=== PATIENT | male | born 1980 | race Caucasian/White ===

== ENCOUNTER 2024-06-30 22:18 | Emergency (ER) | payer BC, SELFPAY ==
[2024-06-30 22:19] VITALS: BMI 29.8
--- NOTE | 2024-06-30 22:27 | XR_ITS ---
Examination: Knee, right , 3 views Technique: Knee AP, lateral, oblique 3 views Date and time of exam: June 30 2024 0519 hrs. Indications: Swelling and pain right knee today. Findings: No fracture or dislocation Mild narrowing medial joint space Small knee effusion Impression: Small knee effusion
[2024-06-30 22:35] VITALS: BP 153/95; PULSE 100; RESP 18; TEMP 37.3; O2SAT 99
--- NOTE | 2024-06-30 22:45 | EDNOTE_ITS ---
Lower Extremity Injury RME/HPI General Chief Complaint: Extremity Injury, Lower Stated Complaint: I THINK I TORE SOMETHING IN MY RIGHT KNEE Time Seen by Provider: 06/30/24 22:43 Arrival date/time: 06/30/24 22:18 43M with no significant PMH presents to ED with R knee pain and swelling. Patient denies fall/trauma, but patient walks a lot for work. Patient states there was a small bump in front of knee for a long time and today it got a lot more swollen. Patient denies SOB. Patient has not had R knee surgery before. Limitations: no limitations Related Data Home Medications ?Medication ?Instructions ?Recorded ?Confirmed No Known Home Medications 07/15/2006/19 Allergies Allergy/AdvReac Type Severity Reaction Status Date / Time HAZELNUT Allergy THROAT Uncoded 06/30/24 22:19 SWELLING Review of Systems Review of Systems Systems Reviewed: All systems reviewed, normal except as documented Constitutional Constitutional: Reports system reviewed and no additional complaints, except as documented, Denies fever(s) and Denies headache(s) ENT Ears, Nose, Mouth, and Throat: Denies disequilibrium and Denies headache(s) Cardiovascular Cardiovascular: Reports system reviewed and no additional complaints, except as documented, Denies chest pain and Denies dyspnea Respiratory Respiratory: Reports system reviewed and no additional complaints, except as documented, Denies cough and Denies dyspnea Gastrointestinal Gastrointestinal: Reports system reviewed and no additional complaints, except as documented, Denies abdominal pain, Denies nausea and Denies vomiting Musculoskeletal Musculoskeletal: Reports as per HPI, Reports arthralgias and Reports joint swelling Neurologic Neurologic: Reports system reviewed and no additional complaints, except as documented, Denies confusion, Denies disequilibrium and Denies headache(s) Psychiatric Psychiatric: Denies confusion Past Medical History Past Medical History CARDIAC: Negative Congestive Heart Failure RESPIRATORY: Negative Chronic Obstructive Pulmonary Disease (COPD) GENITOURINARY: Negative Renal Disease ENDOCRINE: Negative Diabetes Mellitus Type 1 or Diabetes Mellitus Type 2 Social History SMOKING STATUS: Former smoker ED Exam General Limitations: Present no limitations General appearance: Present alert and in no apparent distress Head Head exam: Present atraumatic Eye Eye exam: Present normal appearance, PERRL and EOMI ENT ENT exam: Present normal exam, normal oropharynx and mucous membranes moist Neck Neck exam: Present normal inspection, full ROM and trachea midline Chest Chest inspection: Present normal inspection and symmetric chest wall rise Respiratory Respiratory exam: Present normal lung sounds bilaterally Cardiovascular Cardiovascular exam: Present regular rate, normal rhythm and normal heart sounds Abdominal Exam Abdominal exam: Present soft and normal bowel sounds Extremities Exam Extremities exam: Present full ROM Expanded Lower Extremity Exam Knee exam: Present full ROM, tenderness and swelling (Lump below R knee cap) Back Exam Back exam: Present normal inspection and full ROM Neurological Exam Neurological exam: Present alert, oriented X3 and CN II-XII intact Psychiatric Psychiatric exam: Present normal affect and normal mood Skin Skin exam: Present warm, dry, intact and normal color Course Quality Measures none Orders Category Date Time Status Crutches .NOW Care 06/30/24 23:25 Completed lo wrap [Splint / Immobilizer] STAT Care 06/30/24 23:25 Completed XR knee RT 3V Stat Exams 06/30/24 22:27 Completed Vital Signs Vital signs: Vital Signs Temperature 99.2 F 06/30/24 22:35 Pulse Rate 100 06/30/24 22:35 Respiratory Rate 18 06/30/24 22:35 Blood Pressure 153/95 H 06/30/24 22:35 Pulse Oximetry (%) 99 06/30/24 22:35 Oxygen Delivery Method Room Air 06/30/24 22:35 O2 at 99% on RA and WNLs Extremity Injury, Lower MDM Narrative MDM Narrative:: 43M with no significant PMH presents to ED with R knee pain and swelling. Patient denies fall/trauma, but patient walks a lot for work. Patient states there was a small bump in front of knee for a long time and today it got a lot more swollen. Patient denies SOB. Patient has not had R knee surgery before. Physical exam reveals some R knee tenderness with tender lump below R knee cap. No redness. ROM mostly intact. Gait normal. Patient is afebrile, calm, and alert. XR no fx; small effusion. Likely bursitis. Given LO, crutches, and director of counseling. Patient data External records reviewed:: [facility] previous records Clinical information provided by:: patient Social determinants that could affect healthcare access:: none Patient has the following chronic illnesses:: none How is presenting disease/condition affected by chronic disease/condition?: no chronic disease Evaluation data The following diagnostics were reviewed and interpreted by me:: radiology exam(s) Lab and/or radiology exams considered but not ordered:: ordered Interpretation Summary: above Medications / Prescriptions Medications or Prescriptions considered but not ordered:: not ordered Medication administrations:: n/a Consultations Consultation(s) initiated? (list below): No Diagnosis Extremity Injury, Lower Differential Diagnosis: ankle sprain and strain, acute internal derangement of knee, fracture of femur, fracture of hip, puncture wound of foot, fracture of toe, ankle fracture and other (DVT, bursitis) Most likely diagnosis given after review of the tests above:: bursitis Admission Indicated Admission indicated?: not indicated Admission Request Was there a request for admission?: No Disposition Plan Disposition Plan: Discharge Discharge Attestation Discharge Attestation: The patient and all family members were given an opportunity to ask questions and understood the discharge instructions. Discharge instructions specifically effects, indications for sooner follow up or return to the emergency department, and the expected course of current diagnosis. Patient condition: Stable Discharge Plan Plan Patient Disposition: HOME (Self Care) Disposition Comment: Stable Prescriptions/Referrals Prescriptions/Med Rec: No Action No Known Home Medications Referrals: No Primary/Family,Physician [Primary Care Provider] - In 1 week Problem List Clinical Impression: Bursitis Patient/Caregiver Discharge Instructions Education Materials: ED Bursitis Additional Instructions: Please follow-up with PCP within 24-48 hours and return immediately if symptoms worsen. If problem persists, recommend outpatient PT and/or MRI follow-up. In the meantime, rest, use ice/heat, and/or compression. Print Language: Belgian Stand Alone Forms: Patient Portal Info Letter LENA/CAROLEE Supervising Physician LENA/CAROLEE Supervising Physician: Dr. Hager
== END 2024-06-30 23:41 | disposition home or self-care (01) ==
PROVIDERS: Emergency Provider Emergency Medicine
DX: M71.561 Other bursitis, not elsewhere classified, right knee (principal)
CPT/HCPCS: 73562; 99283

== ENCOUNTER 2024-07-22 08:15 | Outpatient (AMB) | payer BC, SELFPAY ==
[2024-07-22 08:27] VITALS: BP 132/91; PULSE 70; RESP 19; TEMP 36.3; O2SAT 98; BMI 29.5
--- NOTE | 2024-07-22 08:27 | ORTHONT_ITS ---
Vital signs 07/22/24 08:27 Height 1.85 m Height Method Stated Weight 101.179 kg Weight Measurement Method Standing Scale BMI 29.5 BP 132/91 H Blood Pressure Source Automatic Cuff Blood Pressure Location Left Upper Arm Position Sitting Respiration 19 Pulse 70 Pulse Source Monitor Temp 97.4 F Temp Source Temporal Artery Scan Pulse Oximetry (%) 98 Oxygen Delivery Method Room Air Med/Allergies Allergies & Medications Allergies HAZELNUT Allergy (Uncoded 07/22/24 08:28) THROAT SWELLING Medication Reconciliation naproxen 500 mg tablet 500 mg PO BID #30 tabs 07/22/24 [Rx] Exam Exam Patient is in no acute distress and is cooperative with the examination today. Breathing is nonlabored. Patient has a normal mood and affect. The patient has a gait that is nonantalgic Bilateral extremities were evaluated and demonstrates sensation intact to light touch. Palpable pedal pulses are present. No significant edema is present. Bilateral hips were examined. The patient has no pain with log roll of the hips. Internal rotation to 30 degrees and external rotation to 30 degrees is painless. Negative FADIR. Left knee was examined today. The left knee is in reasonable alignment. Range of motion from 0-120 degrees. Knee is stable to varus and valgus as well as AP translation with <5mm. Patient has a negative McMurrays. There is no pain with patellofemoral compression and no crepitus noted. The knee is nontender to palpation. The right knee was also examined. The right knee is in neutral alignment. Range of motion from 0-120 degrees. Knee is stable to varus and valgus as well as AP translation with <5mm. Patient has a negative McMurrays. There is no pain with patellofemoral compression and no crepitus noted. The right knee tender to palpation of the tibial tubercle. There is resolving patella bursitis. There is actually very minimal fluid and is not even drainable at this time. The erythema is gone Assessment and Plan Problem List (1) Infrapatellar bursitis: Status: Acute Plan: Patient is a pleasant 43-year-old male with infrapatellar bursitis of the right knee with superimposed infection. He was treated with antibiotics and has largely resolved. We will continue to watch at this time. We recommend anti- inflammatories should he get persistent bursitis. I would not treat him with antibiotics this time because it looks like the infection has resolved Office Procedures GNS Level of Care Nursing/Assessment Patient Status: Initial/New Patient Nursing Assessment/Reassesment: Medication Reconciliation, Update PMH in EMR and Vital Signs Coordination of Care: Complex Care and Chronic Disease 1-5, Education Complex Pt/Fam, Consent,records obtained, informed consent, 1 Ins Authorization, Lab and Imaging orders, Results/Orders obtained and Staff clarify orders New Patient Charge New Patient Point Assignment: 1124 New Patient Point Charge: WELCOME WAGON HOSTESS Level 4 ([id number]) MA Intake Visit Data Collection New Patient or Established: New Patient (never been to [facility]) Reason for Visit:: RIGHT KNEE PREPATELLAR BURSITIS Seen by Clinical Staff ONLY (RN/MA): No PCP or OBGYN visit in last 3 months: Yes Hx Now: No Do You Feel Safe at Home: Yes Authorities Contacted: N/A Questionairres Past Medical History Past Medical History Have you ever been diagnosed with any of the following: Cardiology Problems Congestive Heart Failure: No Hypertension: Yes Respiratory Problems Chronic Obstructive Pulmonary Disease (COPD): No Smoking: No Smoking Exposure: No Genital/Urinary Problems Renal Disease: No Endocrine Problems Diabetes Mellitus Type 1: No Diabetes Mellitus Type 2: No Subjective Visit Visit for: new patient and knee (RIGHT) Immunization / Flu Flu Vaccine in the Last 12 Months: No Flu Vaccine Exclusion Criteria: Refused by Patient History of Present Illness Chief complaint: Right infrapatellar bursitis Sukhwinder is a pleasant 43-year-old male with right knee pain and infrapatellar bursitis. He reports that he Did have swelling below his kneecap over the tibial tubercle. The pain and swelling initially started here and then he had superimposed cellulitis. He reports the entire knee was red and he was treated with IM Rocephin followed by oral antibiotics. He is now doing well. He reports the swelling has improved as well as the redness. He has been off antibiotics for a week now. He can walk Pain Pain level (0-10): 6 Pain duration: WITH PRESSURE Pain location: anterior Pain quality: dull and aching Associated signs & symptoms: none Ambulatory data Ambulatory device: none Treatments Improvement with previous injections: No Improvement with PT: No Improvement with NSAIDS: no Review of Systems Review of Systems: All systems negative unless otherwise noted in HPI.
== END 2024-07-22 08:59 | disposition home or self-care (01) ==
LOC: HODSRG 08:15
PROVIDERS: PCP Nurse Practitioner Family; Referring Provider Nurse Practitioner Family; Supervising Provider Orthopaedic Surgery Adult Reconstructive Orthopaedic Surgery; Visit Provider Orthopaedic Surgery Adult Reconstructive Orthopaedic Surgery
DX: M70.51 Other bursitis of knee, right knee (principal); I10 Essential (primary) hypertension
CPT/HCPCS: 99204; G0463